=== PATIENT | female | born 1985 | race Caucasian/White ===

== ENCOUNTER 2020-03-13 18:35 | Emergency (ER) | payer BC ==
[2020-03-13] MEDS ORDERED: Famotidine 20 MG TAB ONE (19:56)
[2020-03-13] MEDS ORDERED: methylPREDNISolone Sod Succ/PF 125 MG/2 ML VIAL ONE (19:56)
[2020-03-13] MEDS ORDERED: Cephalexin 500 MG CAP ONE (19:56)
== END 2020-03-13 20:00 | disposition home or self-care (01) ==
LOC: MADERS 18:35
DX: T78.40XA Allergy, unspecified, initial encounter (principal)
CPT/HCPCS: 96372; 99283; J2930